=== PATIENT | female | born 2000 | race Caucasian/White ===

== ENCOUNTER 2023-10-24 08:16 | Outpatient (RCR) | payer BC, SELFPAY ==
--- NOTE | 2023-10-29 15:19 | HP.PTEVAL ---
Patient's Visit Information Visit Information Visit Information: MARIA R RANDOLPH is a 23 year old F referred to Physical Therapy by NEYDA Snow with a diagnosis of Lumbar strain. Date of Evaluation: 10/24/23 Physical Therapist: Jean Timmons DPT Visit Plan Frequency: 2x /Week Duration: 4 Weeks Plan: 1) STM to L erector spinae 2) Gentle stretching (low back, hip) 3) Once pain decreases, begin addressing lifting/squatting mechanics (everyday objects) 4) Core and hip strengthening Subjective Subjective: Pt presents to PT with reports of L sided low back pain that began on 10/13 after lifting a bin out of her car. Pt went to urgent care 10/17 was prescribed steroids but they have not helped. Pt has had hx of mild low back pain, but steroids and stretching have always helped alleviate pain. Pt works as a crisis counselor and hospice case manager, sitting a lot to drive to appointments and at her desk which makes the pain worse. Standing and walking help temporarily alleviate pain. Tylenol and advil did not help but heating pad and standing in shower gives some relief. Pain is 0/10 at best and 6/10 at worst. Pain Left Back: Pain Intensity (Out of 10): 5 Pain Intensity Range: 0 and 6 Objective Objective: ROM: trunk flex/ext WNL, no directional preference, slight pull in L low back with R LSB, pain with L rotation and seated trunk flexion MMT: prone trunk ext increased pain significantly, prone L hip ext increased pain/pinch but slightly improved with pressure to L3, L hip flexion very painful but global leandro LE strength 4/5 PALPATION: TTP L erector spinae, L3 CPA, hamstring and quad length WNL OBSERVATIONS: Instant relief with standing, unable to sit for 5+ minutes without pain, felt relief with hip and low back stretching, lying prone felt best NEURO: myotomes intact, no N/T Balance/Special Test Scores Oswestry Low Back Score: 11 Goals Goal 1:: Pt will be able to tolerate sitting for 1+ hours with <2/10 pain Goal Time Frame: 2-4 Weeks Goal 2:: Pt will be I with HEP Goal Time Frame: 2-4 Weeks Goal 3:: Pt will report <2/10 pain at worst with ADLs Goal Time Frame: 2-4 Weeks Goal 4:: Pt will demonstrate no TTP in L erector spinae muscles Goal Time Frame: 2-4 Weeks Goal 5:: Pt will demonstrate proper lifting mechanics to reduce risk of reinjury Goal Time Frame: 2-4 Weeks Rehabilitation Potential Physical Therapy Diagnosis: Pt presents to PT with low back pain that has affected her ability to sit for long periods of time during her daily commute and at work. Pt would benefit from PT to address pain, decreased tissue extensibility, and trunk/LE strength needed to perform daily tasks. Rehabilitation Potential: Good Anticipated Interventions Patient/Client Instruction: Educate patient on: Plan of Care For the Purpose of:: To decrease pain, To increase ROM, To improve muscle performance and motor function, To improve ability to perform ADL's, To increase tolerance to activity/condition/position, To improve performance and independence with ADL's, To improve ability of physical actions for home/community/work/leisure, To improve health of tissue, To decrease soft tissue restriction, To increase flexibility/ROM, To reduce risk of recurrence, To improve self management, To prevent re-injury, To improve ability to perform tasks related to life management and To improve tolerance to ADL's Therapeutic Exercise to Include: Strength training, Body mechanics, Postural training, Flexibilty training, Neuromotor development and Dynamic Lumbar Stabilization For the Purpose of:: To decrease pain, To increase ROM, To improve muscle performance and motor function, To improve ability to perform ADL's, To increase tolerance to activity/condition/position, To improve performance and independence with ADL's, To decrease level of supervision to perform tasks, To improve gait and locomotor functions, To improve health of tissue, To decrease soft tissue restriction, To increase flexibility/ROM, To assume or resume ADL's, To improve self management, To improve ability to perform tasks related to life management and To improve tolerance to ADL's Manual Therapy Techniques to Include: Mobilization and Soft tissue mobilization For the Purpose of:: To decrease pain, To improve ability to perform ADL's, To increase tolerance to activity/condition/position, To improve performance and independence with ADL's, To improve health of tissue, To decrease soft tissue restriction and To increase flexibility/ROM TENS: Yes IF ES: Yes Cryotherapy (ice pack, ice massage): Yes Thermo therapy (hot pack): Yes Ultrasound (thermal/non thermal): Yes For the Purpose of:: To decrease pain, To increase ROM, To improve nutrient delivery to tissue, To improve muscle performance and motor function, To increase tolerance to activity/condition/position, To improve health of tissue, To decrease soft tissue restriction and To increase flexibility/ROM Text: Thank you for the opportunity to evaluate your patient. For Medicare and Medicare HMO plans, please review the plan of care and approve it. It will need to be FAXED BACK to us at [phone] for Medicare purposes. For Medicare only, by signing this I certify the plan of care. Please let me know if there are questions or concerns regarding this plan of care. Physician Signature: Date:
--- NOTE | 2024-01-01 15:44 | HP.PT.NRP ---
Patient Information Patient Information: MARIA R RANDOLPH was seen in my office for initial evaluation on 10/24/23. The following Plan of Care was established for this patient: POC Established Initial Frequency: 2x /Week Initial Duration: 4 Weeks Anticipated Interventions Patient/Client Instruction: Educate patient on: Plan of Care For the Purpose of:: To decrease pain, To increase ROM, To improve muscle performance and motor function, To improve ability to perform ADL's, To increase tolerance to activity/condition/position, To improve performance and independence with ADL's, To improve ability of physical actions for home/community/work/leisure, To improve health of tissue, To decrease soft tissue restriction, To increase flexibility/ROM, To reduce risk of recurrence, To improve self management, To prevent re-injury, To improve ability to perform tasks related to life management and To improve tolerance to ADL's Therapeutic Exercise to Include: Strength training, Body mechanics, Postural training, Flexibilty training, Neuromotor development and Dynamic Lumbar Stabilization For the Purpose of:: To decrease pain, To increase ROM, To improve muscle performance and motor function, To improve ability to perform ADL's, To increase tolerance to activity/condition/position, To improve performance and independence with ADL's, To decrease level of supervision to perform tasks, To improve gait and locomotor functions, To improve health of tissue, To decrease soft tissue restriction, To increase flexibility/ROM, To assume or resume ADL's, To improve self management, To improve ability to perform tasks related to life management and To improve tolerance to ADL's Manual Therapy Techniques to Include: Mobilization and Soft tissue mobilization For the Purpose of:: To decrease pain, To improve ability to perform ADL's, To increase tolerance to activity/condition/position, To improve performance and independence with ADL's, To improve health of tissue, To decrease soft tissue restriction and To increase flexibility/ROM TENS: Yes IF ES: Yes Cryotherapy (ice pack, ice massage): Yes Thermo therapy (hot pack): Yes Ultrasound (thermal/non thermal): Yes For the Purpose of:: To decrease pain, To increase ROM, To improve nutrient delivery to tissue, To improve muscle performance and motor function, To increase tolerance to activity/condition/position, To improve health of tissue, To decrease soft tissue restriction and To increase flexibility/ROM Last Seen Last Seen: This patient was last seen in our office 10/24/23. Pertinent comments regarding their Physical therapy will appear below: Pt. was seen for her Initial evaluation for her LBP. She has not been seen since and will be DC from PT at this point in time. At this point I will be discontinuing this patient from physical therapy. I would be happy to see this patient again in the future if found appropriate by the physician. Thank you! Jean Timmons, DPT Balance/Gait/Functional tests Balance/Special Test Scores Oswestry Low Back Score: 11
== END 2023-10-24 19:00 | disposition home or self-care (01) ==
LOC: PT 08:16
PROVIDERS: Referring Provider Physician Assistant Surgical; Visit Provider Physician Assistant Surgical
DX: S39.012D Strain of muscle, fascia and tendon of lower back, subsequent encounter (principal)
CPT/HCPCS: 97161